=== PATIENT | female | born 1985 | race Caucasian/White ===

== ENCOUNTER 2020-01-05 06:57 | Emergency (ER) | payer MEDICAID ==
[~2020-01-05] VITALS: Ht 162.6 cm; Wt 90.9 kg
[2020-01-05 07:29] LABS: URINE HCG POSITIVE (NEG)
[2020-01-05 07:32] LABS: CLARITY,URINE CLEAR (Clear); COLOR,URINE YELLOW (Yellow); GLUCOSE, URINE NEGATIVE (Neg); KETONES,URINE NEGATIVE (Neg); LEUKOCYTE ESTERASE ,URINE NEGATIVE (Neg); NITRITES, URINE NEGATIVE (Neg); OCCULT BLOOD,URINE NEGATIVE (Neg); PROTEIN,URINE NEGATIVE (Neg); UA COLLECTION TYPE CLN CATCH MIDSTREAM
[2020-01-05] MEDS ORDERED: normal saline 1000ml 1,000 ML IV ONE (07:36)
[2020-01-05] MEDS ORDERED: metoclopramide 5 mg/ml inj IV ONE (07:40)
[2020-01-05] MEDS ORDERED: normal saline 1000ML IV soln IVB ONE (07:40)
[2020-01-05] MEDS ORDERED: morphine 4 MG/ML inj SYRINge IV ONE ×2 (08:05→09:35)
[2020-01-05 08:20] LABS: BASOPHILS % (AUTO) 0.3 % (0-1); EOSINOPHILS % (AUTO) 0.1 % (0-6); LYMPHOCYTES # (AUTO) 1.5 X10'3 (1.1-4.8); LYMPHOCYTES % (AUTO) 12.4 % (21-51); MEAN CORPUSCULAR HEMOGLOBIN 19.1 PG (27.0-31.0); MEAN CORPUSCULAR HGB CONC 29.7 g/dL (33.0-36.5); MEAN CORPUSCULAR VOLUME 64.3 FL (78-98); MEAN PLATELET VOLUME 7.9 FL (7.4-10.4); MONOCYTES # (AUTO) 0.6 X10'3 (0-0.9); MONOCYTES % (AUTO) 4.8 % (2-12); NEUTROPHILS # (AUTO) 10.1 X10'3 (1.8-7.7); NEUTROPHILS % (AUTO) 82.4 % (42-75); PLATELET COUNT 252 X10'3 (140-440); RED BLOOD COUNT 3.42 X10'6 (4.20-5.60); RED CELL DISTRIBUTION WIDTH 18.9 % (11.5-14.5); WHITE BLOOD COUNT 12.2 X10'3 (4.5-11.0)
[2020-01-05 08:24] LABS: HEMOGLOBIN 6.5 g/dl (12.0-16.0)
[2020-01-05 08:38] LABS: ALANINE AMINOTRANSFERASE 12 U/L (12-78); ALBUMIN 3.2 G/DL (3.4-5.0); ALBUMIN/GLOBULIN RATIO 0.8 (1.1-1.5); ALKALINE PHOSPHATASE 67 IU/L (46-116); ANION GAP 10 (8-16); ASPARTATE AMINO TRANSFERASE 7 U/L (10-37); BILIRUBIN,TOTAL 0.3 MG/DL (0.1-1.0); BLOOD UREA NITROGEN 10 MG/DL (7-18); BUN/CREATININE RATIO 12.7 (6.6-38.0); CALCIUM 8.3 MG/DL (8.5-10.1); CHLORIDE 105 MMOL/L (99-107); CREATININE 0.79 MG/DL (0.40-0.90); GLUCOSE 119 MG/DL (70-104); POTASSIUM 3.7 MMOL/L (3.5-5.1); SODIUM 140 MMOL/L (135-145); TOTAL CARBON DIOXIDE 25.3 MMOL/L (24-32); TOTAL PROTEIN 7.2 G/DL (6.4-8.2); eGFR 83 ML/MIN
[2020-01-05 09:02] LABS: LIPASE 56 U/L (73-393)
[2020-01-05 09:05] VITALS: BP 126/49
[2020-01-05 09:05] LABS: BETA HCG,QUANTITATIVE 11398 mIU/ml
[2020-01-05 09:25] VITALS: BP 117/52
--- NOTE | 2020-01-05 09:36 | NUR ---
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 SEE MD NOTES
[2020-01-05 10:57] LABS: PLATELET ESTIMATE NORMAL
[2020-01-05 10:58] LABS: ANISOCYTOSIS 2+; HYPOCHROMASIA 2+; MICROCYTOSIS 2+; POLYCHROMASIA 1+; TARGET CELLS 1+
== END 2020-01-05 09:49 | disposition short-term general hospital (02) ==
LOC: ER 06:57
DX: O00.80 Other ectopic pregnancy without intrauterine pregnancy (principal); O26.891 Other specified pregnancy related conditions, first trimester; R10.84 Generalized abdominal pain; Z88.1 Allergy status to other antibiotic agents; Z88.5 Allergy status to narcotic agent; Z56.0 Unemployment, unspecified
CPT/HCPCS: 36415; 36430; 76830; 76856; 80053; 81003; 81025; 83690; 84702; 85025; 86885; 86900; 86901; 86920; 96361; 96374; 96375; 96376; 99285; J2270; J2765; J7030; P9016

== ENCOUNTER 2025-03-19 09:42 | Day surgery (SDC) | payer MEDICAID ==
[2025-03-15 10:37] LABS: BASOPHILS % (AUTO) 0.4 % (0-1); EOSINOPHILS # (AUTO) 0.2 X10'3 (0-0.9); EOSINOPHILS % (AUTO) 1.7 % (0-6); LYMPHOCYTES # (AUTO) 2.7 X10'3 (1.1-4.8); LYMPHOCYTES % (AUTO) 27.5 % (21-51); MEAN CORPUSCULAR HEMOGLOBIN 24.6 PG (27.0-31.0); MEAN CORPUSCULAR HGB CONC 31.2 g/dL (33.0-36.5); MEAN CORPUSCULAR VOLUME 78.7 FL (78-98); MEAN PLATELET VOLUME 7.7 FL (7.4-10.4); MONOCYTES # (AUTO) 0.5 X10'3 (0-0.9); MONOCYTES % (AUTO) 5.6 % (2-12); NEUTROPHILS # (AUTO) 6.3 X10'3 (1.8-7.7); NEUTROPHILS % (AUTO) 64.8 % (42-75); PRE OP HEMATOCRIT 35.9 % (35.0-45.0); PRE OP HEMOGLOBIN 11.2 g/dL (12.0-16.0); PRE OP PLATELET COUNT 209 X10'3 (140-440); PRE OP WHITE BLOOD COUNT 9.7 10'3 (4.8-10.8); RED BLOOD COUNT 4.55 X10'6 (4.20-5.60); RED CELL DISTRIBUTION WIDTH 29.9 % (11.5-14.5)
--- NOTE | 2025-03-15 10:42 | ELECTROCARDIOGRAPH REPORT ---
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 TANYA Martinez Measurements Intervals [place] Rate: 93 P: 47 DE: 154 QRS: 79 QRSD: 85 T: 44 QT: 360 QTc: 448 Interpretive Statements Sinus rhythm Electronically Signed On 03-15-2025 12:18:[address] TANYA Martinez Please click the below link to view image of tracing.
[2025-03-15 10:56] LABS: ALBUMIN 3.3 G/DL (3.4-5.0); ALBUMIN/GLOBULIN RATIO 0.9 (1.1-1.5); ALKALINE PHOSPHATASE 68 IU/L (46-116); BLOOD UREA NITROGEN 8 MG/DL (7-18); BUN/CREATININE RATIO 9.1 (10.0-20.0); CALCIUM 8.7 MG/DL (8.5-10.1); CHLORIDE 105 MMOL/L (99-107); CREATININE 0.88 MG/DL (0.40-0.90); PRE OP ALT 56 U/L (30-65); PRE OP ANION GAP 5 (8-16); PRE OP AST 17 U/L (10-37); PRE OP BILIRUB, TOTAL 0.2 MG/DL (0.0-1.0); PRE OP GLUCOSE 146 MG/DL (70-104); PRE OP POTASSIUM 3.7 MMOL/L (3.4-5.1); PRE OP SODIUM 141 MMOL/L (135-145); TOTAL CARBON DIOXIDE 30.6 MMOL/L (24-32); eGFR 71 ML/MIN
[2025-03-19] VITALS (17 sets, daily range): BP systolic 91–169; BP diastolic 54–82; PULSE 71–84; RESP 12–16; TEMP 96.8–98; O2SAT 93–99
[~2025-03-19] VITALS: Ht 162.6 cm; Wt 141.2 kg
[~2025-03-19 09:42] MED LIST: ALBU8HFA IH; APIX5TAB3 PO; CYAN250010 PO; DOCU-392 PO; FERR325T29 PO; MULT-1249 PO; TIOT18CA3 INH
[2025-03-19] MEDS ORDERED: proCHLORperazine 10 MG/2 ml inj IV PRN (10:15)
[2025-03-19] MEDS ORDERED: meperidine/PF 25mg/ml syringe IV PRN (10:15)
[2025-03-19] MEDS ORDERED: morphine 4 MG/ML inj SYRINge IV PRN (10:15)
[2025-03-19] MEDS ORDERED: acetaminophen 1,000mg/100ml IV 100 ML IV PRN (10:15)
[2025-03-19] MEDS ORDERED: morphine 2 MG/ML inj. syringe IV PRN (10:15)
[2025-03-19] MEDS ORDERED: labetalol 20mg/4ml (5mg/ml) syringe IV PRN (10:15)
[2025-03-19] MEDS ORDERED: HYDROmorphone/PF 0.2 MG/ML SYRINGE IV PRN ×2 (10:15)
[2025-03-19] MEDS ORDERED: ringers solution, lacted 1,000 ML IV SCH (10:15)
[2025-03-19] MEDS ORDERED: hydrALAZINE 20mg/ml inj. IV PRN (10:15)
[2025-03-19] MEDS ORDERED: ondansetron/PF 4mg/2ml inj IV PRN (10:15)
[2025-03-19] MEDS: CEFAZOLIN 3GM/DEXTROSE 150mL 150 ML IV ONE (10:25)
[2025-03-19] MEDS: famotidine 20mg tablet PO ONE (10:25)
[2025-03-19] MEDS: ringers solution, lacted 1,000 ML IV SCH (10:25)
[2025-03-19] MEDS ORDERED: LIDOcaine 2% (20mg/ml) 5ml vial ONE (11:12)
[2025-03-19] MEDS ORDERED: fentaNYL/PF 50MCG/1 ML 2ML syringe ONE (11:42)
[2025-03-19] MEDS ORDERED: midazolam 1 mg/ML 2ml injection ONE (11:44)
[2025-03-19] MEDS ORDERED: propofol inj 20 ML IV ONE ×2 (11:58)
--- NOTE | 2025-03-19 12:26 | OPERATIVE REPORT ---
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 Surgery is indicated to relieve symptoms. the risks and benefits were discussed with the patient and she agreed to proceed. She was brought to the operating room where the arm was prepped and draped in usual manner. Local anesthetic was infiltrated proximal to the wrist crease after time-out procedure. A transverse incision was made at the wrist crease ulnar to palmaris longus. A distally based U shaped flap was raised in the fascia and the scope was placed in the carpal canal in line with the ring finger. The cutting blade was deployed up against the underside of the ligament and divided by dragging the scope proximally. Scope was then removed the flap was transected and the fascia proximal to the incision was divided a short distance using the blunt scissor tips. The incision was irrigated and closed with nylon suture and a sterile dressing was applied. The patient was taken to the recovery room in stable condition and tolerated the procedure well. MANNY ESPINOZA Jr., MD March 19, 2025 12:26
== END 2025-03-19 14:46 | disposition home or self-care (01) ==
LOC: PRE-OP 09:42
PROVIDERS: ATTEND Orthopaedic Surgery Hand Surgery
DX: G56.01 Carpal tunnel syndrome, right upper limb (principal); J45.909 Unspecified asthma, uncomplicated; F17.210 Nicotine dependence, cigarettes, uncomplicated; M19.90 Unspecified osteoarthritis, unspecified site; Z88.8 Allergy status to other drugs, medicaments and biological substances; Z79.899 Other long term (current) drug therapy; Z90.710 Acquired absence of both cervix and uterus; Z98.890 Other specified postprocedural states; Z86.2 Personal history of diseases of the blood and blood-forming organs and certain disorders involving the immune mechanism
CPT/HCPCS: 29848; 80053; 82948; 85025; 93005; J2003; J2250; J2704; J3010; J7030; J7120; Z7506; Z7512; A4215; A6449; A7000

== ENCOUNTER 2025-04-16 05:46 | Day surgery (SDC) | payer MEDICAID ==
[2025-04-11 14:37] LABS: BASOPHILS # (AUTO) 0.1 X10'3 (0-0.2); EOSINOPHILS # (AUTO) 0.2 X10'3 (0-0.9); EOSINOPHILS % (AUTO) 2.3 % (0-6); LYMPHOCYTES # (AUTO) 2.7 X10'3 (1.1-4.8); LYMPHOCYTES % (AUTO) 35.5 % (21-51); MEAN CORPUSCULAR HEMOGLOBIN 27.5 PG (27.0-31.0); MEAN CORPUSCULAR HGB CONC 32.3 g/dL (33.0-36.5); MEAN CORPUSCULAR VOLUME 85.2 FL (78-98); MEAN PLATELET VOLUME 7.7 FL (7.4-10.4); MONOCYTES # (AUTO) 0.5 X10'3 (0-0.9); MONOCYTES % (AUTO) 6.3 % (2-12); NEUTROPHILS # (AUTO) 4.3 X10'3 (1.8-7.7); NEUTROPHILS % (AUTO) 54.9 % (42-75); PRE OP HEMATOCRIT 39.2 % (35.0-45.0); PRE OP HEMOGLOBIN 12.7 g/dL (12.0-16.0); PRE OP PLATELET COUNT 228 X10'3 (140-440); PRE OP WHITE BLOOD COUNT 7.7 10'3 (4.8-10.8); RED CELL DISTRIBUTION WIDTH 27.3 % (11.5-14.5)
[2025-04-11 14:51] LABS: ALBUMIN 3.5 G/DL (3.4-5.0); ALBUMIN/GLOBULIN RATIO 0.9 (1.1-1.5); ALKALINE PHOSPHATASE 65 IU/L (46-116); BLOOD UREA NITROGEN 7 MG/DL (7-18); BUN/CREATININE RATIO 6.9 (10.0-20.0); CALCIUM 8.5 MG/DL (8.5-10.1); CHLORIDE 105 MMOL/L (99-107); CREATININE 1.02 MG/DL (0.40-0.90); PRE OP ALT 39 U/L (30-65); PRE OP ANION GAP 6 (8-16); PRE OP AST 16 U/L (10-37); PRE OP BILIRUB, TOTAL 0.2 MG/DL (0.0-1.0); PRE OP GLUCOSE 154 MG/DL (70-104); PRE OP POTASSIUM 3.8 MMOL/L (3.4-5.1); PRE OP SODIUM 141 MMOL/L (135-145); TOTAL CARBON DIOXIDE 30.2 MMOL/L (24-32); TOTAL PROTEIN 7.3 G/DL (6.4-8.2); eGFR 60 ML/MIN
[2025-04-11 15:29] LABS: ANISOCYTOSIS 3+; PLATELET ESTIMATE NORMAL
[2025-04-11 15:31] LABS: POLYCHROMASIA FEW
[2025-04-11 15:32] LABS: TEAR DROP CELLS FEW
[~2025-04-16] VITALS: Ht 162.6 cm; Wt 143.1 kg
[2025-04-16] VITALS (7 sets, daily range): BP systolic 116–147; BP diastolic 68–90; PULSE 71–85; RESP 13–16; TEMP 97.6; O2SAT 94–99
[~2025-04-16 05:46] MED LIST changes: -CYAN250010 PO; +OMEP20CA16 PO
[2025-04-16] MEDS: famotidine 20mg tablet PO ONE (06:18)
[2025-04-16] MEDS: ringers solution, lacted 1,000 ML IV SCH (06:18)
[2025-04-16] MEDS: CEFAZOLIN 3GM/DEXTROSE 150mL 150 ML IV ONE (06:19)
[2025-04-16] MEDS ORDERED: BUPIVAcaine/PF 2.5mg/ml (0.25%) 10ml vial ONE (06:56)
[2025-04-16] MEDS ORDERED: LIDOcaine 2% (20mg/ml) 5ml vial ONE ×2 (06:56→07:50)
[2025-04-16] MEDS ORDERED: ondansetron/PF 4mg/2ml inj IV PRN (07:45)
[2025-04-16] MEDS ORDERED: morphine 2 MG/ML inj. syringe IV PRN (07:45)
[2025-04-16] MEDS ORDERED: labetalol 20mg/4ml (5mg/ml) syringe IV PRN (07:45)
[2025-04-16] MEDS ORDERED: ringers solution, lacted 1,000 ML IV SCH (07:45)
[2025-04-16] MEDS ORDERED: MIDAZolam 1 MG/ML 5ML VIAL ONE (07:49)
[2025-04-16] MEDS ORDERED: fentaNYL/PF 50MCG/1 ML 2ML syringe ONE (07:49)
[2025-04-16] MEDS ORDERED: propofol inj 20 ML IV ONE ×2 (07:50→08:34)
[2025-04-16] MEDS: morphine 4 MG/ML inj SYRINge IV PRN (09:24)
--- NOTE | 2025-04-16 10:28 | OPERATIVE REPORT ---
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 Surgery is indicated to relieve symptoms. Risks and benefits were discussed with the patient in the preop visit as well as immediately prior to surgery. Some of the risks of this type of procedure include but are not limited to infection, bleeding, nerve or vessel damage, failure to improve and chronic pain. She agreed to proceed. She was brought to the operating room where the arm was prepped and draped in usual manner and time-out procedure was observed. Local anesthetic was infiltrated proximal to the wrist crease. A transverse incision was made at that area and flap was elevated. The scope was placed in the carpal canal and the cutting blade was deployed up against the underside of the ligament. The sc ope was drawn proximally dividing the ligament while protecting the nerve. Scope was removed the flap was transected and the fascia proximal to the incision was divided using a blunt scissor tips. The incision was irrigated and closed with nylon suture. A sterile dressing was then applied. The patient was taken to the recovery room in stable condition. MANNY ESPINOZA Jr., MD Apr 16, 2025 10:28
== END 2025-04-16 09:30 | disposition home or self-care (01) ==
LOC: PAS 05:46
PROVIDERS: ATTEND Orthopaedic Surgery Hand Surgery
DX: G56.02 Carpal tunnel syndrome, left upper limb (principal); M19.90 Unspecified osteoarthritis, unspecified site; Z79.899 Other long term (current) drug therapy; Z90.710 Acquired absence of both cervix and uterus; Z98.890 Other specified postprocedural states; Z87.891 Personal history of nicotine dependence; Z86.718 Personal history of other venous thrombosis and embolism; Z86.711 Personal history of pulmonary embolism; Z88.8 Allergy status to other drugs, medicaments and biological substances
CPT/HCPCS: 29848; 36415; 80053; 82948; 85025; J2003; J2250; J2270; J2704; J3010; J3490; J7030; J7120; Z7506; Z7512; 85008; A4215; A6449; A7000